=== PATIENT | female | born 1945 | race Caucasian/White ===

== ENCOUNTER 2024-06-11 12:55 | Outpatient (RCR) | payer MEDICARE, OTHER, SELFPAY ==
--- NOTE | 2024-06-18 09:17 | MHC.SP.ADU ---
Referring provider: Ashkan Johns MD Reason for Referral: Dysphonia Type of Treatment: 51161 Behavioral and Qualitative Analysis of Voice and Resonance Date of Plan of Treatment: 06/10/24 Onset of Symptoms/Illness: 12/25/23 Date Treatment Started: 06/10/24 Medical Diagnosis: Dysphonia Primary Speech Language Diagnosis: R49.0 Dysphonia Secondary Speech Language Diagnosis: History Margie Ardon is a delightful 78 year old woman who was referred to this clinic by her ENT Dr. Johns, due to concerns she had related to her singing voice. Margie saw Dr. Johns on 04/15/24 for an evaluation of her vocal mechanism as she had been experiencing increasing vocal strain when singing. Dr. Johns's note from this evaluation indicate that while Margie has a deviated septum, He did not note vocal pathology. He indicated that her issues may be use related as she is a performing cedillo. 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 She sang in choral groups in high school and college, and for an extended period she performed with two different [employer] bands who performed locally and regionally for over 20 years. Her is also a musician though primarily an instrumentalist. 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 Margie reported taking some courses from the [employer] in her youth, then attending [employer]. After graduating she worked in the [employer] in [employer], and subsequently obtained her MA in linguistics. Upon retiring, Margie joined the [facility], a much loved and prized singing ensemble in our community that features vocal performers generally above the age of 70 years of age. This performing group meets twice weekly for two hour rehearsals, and performs at least quarterly, in public concerts locally and regionally. Margie was given a solo in her first performance with the group this past fall, performing [employer] from the [employer], during which she had a pronounced crack when transitioning from a lower register in her voice to a higher pitch during the performance. She reported that she had expressed her concern to the director pharmacology, who responded with an over abundance of enthusiasm but also ignored her concerns. Margie produced a recording of this concert, and it was evident that her voice cracked (became episodically aphonic and lost tone) in transition to a higher register at moments in the song. Margie has noted that other performers, when they may have difficulty, are given a mason change in the song to facilitate their voices, but this was not offered to her in this context. As a long time precision aircraft structure assembler, this experience in performance was very frustrating and disappointing to her. Apart from this incident, Margie has no specific complaint about her voice: She reports no history of hoarseness, loss of voice, vocal strain currently or previously. 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 While she speculated that she may have had some episodes of vocal strain when younger, her main current issue relates to her singing and evidence of a crack which she has not had before. Margie reported that she does have a history of GERD, for which she regularly takes omeprazole, and since taking the med, she does not have symptoms. She does not have any allergies that affect her airway, and has no history of smoking or asthma. She reported that she feels she could do better with staying hydrated throughout the day, and that she generally does not keep track of how much water she takes in during the day. She also reported that while she brings a water bottle to choral rehearsals, she stated there are very few breaks and rarely takes any sips from her bottle. Margie did report a history of a thyroid disorder, including thyroid surgery when she was in her 20s. She has been on thyroid medication for most of her adult life. Further Margie reported a history of Breast Cancer, having had both an initial episode(2010) and recurrence(2019). During both episodes she received radiation, and has has struggled with edema in her right arm and upper body chronically. Margie reported that she has been on aromatase inhibitor medication since her last episode in 2019. Finally, Margie reported that she is currently in rehearsal for a Spring Concert with the [facility], for which she again has a solo, but the song she is singing (the [employer] [address] [employer]) is well in her range and she is not having any issues with her voice cracking. Margie stated that she would have described herself when younger as a Soprano, but now estimates she is Mezzo Soprano/[place], however she has never worked with a vocal head field hockey coach or even a risk control product liability director who has given her specific feedback or categorization about her range. Medical History: Acid Reflux Cancer: other Thyroid Issues Voice Changes Other: Breast Cancer (2010, 2019) Medication List: Please see chart. Recent Hospitalizations: None reported Respiratory Needs: Room Air Patient Orientation: Alert & Oriented x 4 Social History: Employment Status: Retired Highest level of education obtained: Completed Master's Current Living Situation: Lives with her in a private residence in [place], [place]. Past Speech Language Therapy: None reported Assessment: Informal Voice Assessment Voice Loudness: Normal Voice Nasal Resonance: Normal Voice Oral Resonance: Normal Voice Phonatory-based Quality: Normal Voice Pitch: Normal Clinical Impression: Intact Clinicial Observations: Margie presented as highly cooperative, insightful and concerned about her voice. Margie was administered the Consensus Auditory Perceptual Evaluation of Voice (CAPE-V). On this evaluation, Margie demonstrated a balanced ratio of voiceless v. voiced phonation (S/Z Ration) of .90. When producing a sustained ah note, a mild vibrato, or vocal waver was noted, it was less evident on sustained ee. When singing a scale to a higher pitch and then sustaining the high note (A4), again a mild vibrato was noted. When singing a scale to a lower note (C3), her sustained note minor wavering. When queried about her higher range notes, Margie readily produced a falsetto range, though less resonant than her natural range. She was noted to have strong resonance both in her head and chest range. In reading both phonemically balanced sentences and a paragraph length passage, Margie presented with clear and articulate speech with excellent intonation and expression. In summary, on a perceptually based vocal assessment, Margie presents with normal vocal function, with mild vibrato noted on sustained notes that is still within normal expectations. Impressions and Recommendations Summary: Margie Richard attended today's evaluation at the recommendation of her ENT and seeking more input about changes in her singing voice. In general, Margie's vocal use, vocal health and vocal quality are all very strong and well within expectations as evaluated behaviorally and observationally. One area uncovered in our interview was Margie being more mindful of hydration, both throughout her day as well as taking regular hydration breaks when rehearsing with her choral group. Margie presented to this examiner the crack in her voice that occurred during a solo in performance which was the source of her concern about her voice. She further identified a reduction in her vocal range, in particular higher notes, and a drop or deeper quality to her speaking voice. It was explained to Margie that these changes to her singing voice are likely related to hormonal changes associated with menopause, as well as likely side effects related to aromatase inhibitors (which inhibit estrogen production) as well as general aging. Given her unique concerns related to managing these issues related to singing, it was recommended that Margie work with a vocal/singing head field hockey coach to: 1. Become acquainted with her current vocal range, preferential musical keys where range and production are strongest, clarification on transitional areas where vocal function during singing becomes unstable, and exercises to strengthen her range. Margie has abundant talent for singing, but has not had any formal training, and knowledge of her voice and vocal range can assist with her ability to advocate for how her voice can best be supported in performance. She is enthusiastically encouraged to continue sharing her vocal gifts and performing with the [facility] [email or web address]. Impact on Daily Function/Activity Limitations: Daily Activities: None Interpersonal Interactions: None Education: None Employment: Mild Community: Mild Prognosis for Improvement: Good Recommendation for Speech Therapy: Discharged with Recommendation for Vocal Coaching for singing Recommended Referrals to be Discussed with Primary Care Provider: Other: See Comment Vocal head field hockey coach/formal voice training for singing Patient Education: Completed: Yes Patient/Caregiver Education: Described Results of Evaluation Patient expressed understanding of evaluation Comments/Barriers to Learning: None Mixing Engineer Clinican/Clinical Fellow: No Supervisory Statement: N/A Speech Language Pathologist: Trina De Dios M.A., CCC-INTERNAL AFFAIRS COMMANDER
== END 2024-06-18 15:52 | disposition home or self-care (01) ==
LOC: HO.SH 12:55
PROVIDERS: PCP Family Medicine; Visit Provider Otolaryngology
DX: R49.0 Dysphonia (principal)
CPT/HCPCS: 92524